=== PATIENT | male | born 1965 | race Caucasian/White ===

== ENCOUNTER → 2019-12-16 | Outpatient (CLI) | payer OTHER | END | disposition home or self-care (01) | LOC: CVU 15:59 | PROVIDERS: ATTEND Internal Medicine Cardiovascular Disease | DX: I34.0 Nonrheumatic mitral (valve) insufficiency (principal); I11.9 Hypertensive heart disease without heart failure; I48.0 Paroxysmal atrial fibrillation; Z79.01 Long term (current) use of anticoagulants | CPT/HCPCS: 93306 ==

== ENCOUNTER 2020-01-07 10:01 | Day surgery (SDC) | payer OTHER ==
[~2020-01-07] VITALS: Ht 185.4 cm; Wt 97.7 kg
[2020-01-07] MEDS ORDERED: METO25TA91 PO (11:12)
[2020-01-07] MEDS ORDERED: RIVA20TA PO (11:12)
[2020-01-07] MEDS ORDERED: MULT-717 PO (11:12)
[2020-01-07] MEDS ORDERED: GEMF600T8 PO (11:12)
[2020-01-07] MEDS ORDERED: METF500T17 PO (11:12)
[2020-01-07] MEDS ORDERED: EFAV1TAB PO (11:12)
[2020-01-07 11:17] LABS: BASOPHILS # (AUTO) 0.02 x10^3/uL (0-0.1); BASOPHILS % (AUTO) 1 % (0-1); EOSINOPHILS # (AUTO) 0.04 x10^3/uL (0-0.4); EOSINOPHILS % (AUTO) 1 % (1-7); LYMPHOCYTES # (AUTO) 1.92 x10^3/uL (1-3.4); LYMPHOCYTES % (AUTO) 45 % (22-44); MD NO; MEAN CORPUSCULAR HEMOGLOBIN 34.2 pg (27.5-34.5); MEAN CORPUSCULAR HGB CONC 34.5 g/dL (33.2-36.2); MEAN CORPUSCULAR VOLUME 99.2 fL (81-97); MEAN PLATELET VOLUME 9.2 fL (7.4-10.4); MONOCYTES # (AUTO) 0.38 x10^3/uL (0.2-0.8); MONOCYTES % (AUTO) 9 % (2-9); NEUTROPHILS # (AUTO) 1.89 x10^3/uL (1.8-6.8); NEUTROPHILS % (AUTO) 44 % (42-75); PLATELET COUNT 187 x10^3/uL (130-400); RED BLOOD COUNT 4.77 x10^6/uL (4.38-5.82); RED CELL DISTRIBUTION WIDTH 12.7 % (9.4-14.8)
[2020-01-07 11:28] LABS: ANION GAP 6 mmol/L (5-15); CALCIUM 8.9 mg/dL (8.5-10.1); CHLORIDE 111 mmol/L (98-107); CREATININE 0.86 mg/dL (0.7-1.3)
[2020-01-07] MEDS ORDERED: PROPOFOL 100 ML IV ONE (12:15)
[2020-01-07] MEDS ORDERED: METOPROLOL 1 MG/ML, 5ML ONE (12:28)
[2020-01-07] MEDS ORDERED: METO-93 PO (12:46)
== END 2020-01-07 13:45 | disposition home or self-care (01) ==
LOC: CACL 10:01
PROVIDERS: ATTEND Internal Medicine Cardiovascular Disease
DX: I48.0 Paroxysmal atrial fibrillation (principal); I10 Essential (primary) hypertension; E11.9 Type 2 diabetes mellitus without complications; E78.5 Hyperlipidemia, unspecified; E66.9 Obesity, unspecified; Z68.30 Body mass index [BMI] 30.0-30.9, adult; Z79.01 Long term (current) use of anticoagulants; Z79.84 Long term (current) use of oral hypoglycemic drugs; Z79.899 Other long term (current) drug therapy; Z82.49 Family history of ischemic heart disease and other diseases of the circulatory system
CPT/HCPCS: 36415; 80048; 85025; 92960; 93005; J2704

== ENCOUNTER 2020-02-07 10:10 | Day surgery (SDC) | payer OTHER ==
[~2020-02-07] VITALS: Ht 182.9 cm; Wt 100.0 kg
[~2020-02-07 10:10] MED LIST: EFAV1TAB PO; GEMF600T8 PO; METF500T17 PO; METO-93 PO; METO25TA91 PO; MULT-717 PO; RIVA20TA PO
[2020-02-07 10:35] VITALS: BP 122/98
[2020-02-07] MEDS ORDERED: METO-93 PO (10:36)
[2020-02-07 11:15] LABS: BASOPHILS # (AUTO) 0.02 x10^3/uL (0-0.1); BASOPHILS % (AUTO) 1 % (0-1); EOSINOPHILS # (AUTO) 0.04 x10^3/uL (0-0.4); EOSINOPHILS % (AUTO) 1 % (1-7); LYMPHOCYTES % (AUTO) 40 % (22-44); MD NO; MEAN CORPUSCULAR HEMOGLOBIN 34.1 pg (27.5-34.5); MEAN CORPUSCULAR HGB CONC 34.4 g/dL (33.2-36.2); MEAN CORPUSCULAR VOLUME 99.2 fL (81-97); MEAN PLATELET VOLUME 8.9 fL (7.4-10.4); MONOCYTES # (AUTO) 0.32 x10^3/uL (0.2-0.8); MONOCYTES % (AUTO) 8 % (2-9); NEUTROPHILS # (AUTO) 2.16 x10^3/uL (1.8-6.8); NEUTROPHILS % (AUTO) 51 % (42-75); PLATELET COUNT 171 x10^3/uL (130-400); RED BLOOD COUNT 4.77 x10^6/uL (4.38-5.82); RED CELL DISTRIBUTION WIDTH 12.3 % (9.4-14.8)
[2020-02-07 11:23] LABS: ANION GAP 7 mmol/L (5-15); CALCIUM 8.6 mg/dL (8.5-10.1); CHLORIDE 112 mmol/L (98-107); CREATININE 0.82 mg/dL (0.7-1.3)
[2020-02-07] MEDS ORDERED: PROPOFOL 10 MG/ML, 20ML ONE (12:14)
[2020-02-07] MEDS ORDERED: METO-95 PO (12:31)
== END 2020-02-07 13:36 | disposition home or self-care (01) ==
LOC: CACL 10:10
PROVIDERS: ATTEND Internal Medicine Cardiovascular Disease
DX: I48.91 Unspecified atrial fibrillation (principal); I10 Essential (primary) hypertension; E78.5 Hyperlipidemia, unspecified; E11.9 Type 2 diabetes mellitus without complications; E66.9 Obesity, unspecified; Z68.30 Body mass index [BMI] 30.0-30.9, adult; Z79.01 Long term (current) use of anticoagulants; Z79.84 Long term (current) use of oral hypoglycemic drugs; Z79.899 Other long term (current) drug therapy; Z82.49 Family history of ischemic heart disease and other diseases of the circulatory system
CPT/HCPCS: 36415; 80048; 85025; 92960; J2704

== ENCOUNTER 2020-03-08 09:58 | Day surgery (SDC) | payer OTHER ==
[~2020-03-08] VITALS: Ht 182.9 cm; Wt 110.0 kg
[~2020-03-08 09:58] MED LIST changes: +METO-95 PO
[2020-03-08] MEDS ORDERED: METO-93 PO (10:31)
[2020-03-08] MEDS ORDERED: FLEC100T PO (10:31)
[2020-03-08] MEDS ORDERED: CHOL10003 PO (10:31)
[2020-03-08 11:10] VITALS: BP 130/83
[2020-03-08] MEDS ORDERED: PROPOFOL 10 MG/ML, 20ML ONE (12:28)
[2020-03-08] MEDS ORDERED: GEMFIBROZIL 600 MG TABLET PO SCH (21:00)
[2020-03-08] MEDS ORDERED: metFORMIN 500 MG TABLET PO SCH (21:00)
[2020-03-08] MEDS ORDERED: FLECAINIDE 100MG TABLET PO SCH (21:00)
[2020-03-09] MEDS ORDERED: EFAVIRENZ/EMTRICITAB/TENOFOVIR 600MG-200MG-300MG TABLET PO SCH (06:00)
[2020-03-09] MEDS ORDERED: METOPROLOL SUCCINATE 25 MG TAB.ER.24H PO SCH (09:00)
[2020-03-09] MEDS ORDERED: CHOLECALCIFEROL 1,000 UNIT TABLET PO SCH (09:00)
[2020-03-09] MEDS ORDERED: RIVAROXABAN 20 MG TABLET PO SCH (09:00)
== END 2020-03-08 13:36 | disposition home or self-care (01) ==
LOC: CACL 09:58
PROVIDERS: ATTEND Internal Medicine Cardiovascular Disease
DX: I48.0 Paroxysmal atrial fibrillation (principal); I10 Essential (primary) hypertension; E11.9 Type 2 diabetes mellitus without complications; E78.2 Mixed hyperlipidemia; Z79.01 Long term (current) use of anticoagulants; Z79.84 Long term (current) use of oral hypoglycemic drugs; Z79.899 Other long term (current) drug therapy; Z82.49 Family history of ischemic heart disease and other diseases of the circulatory system
CPT/HCPCS: 92960; J2704